=== PATIENT | female | born 1945 | race Two or more races ===

== ENCOUNTER 2017-07-13 11:58 | Inpatient (IN) | payer MEDICARE, MEDICAID ==
[~2017-07-13] VITALS: Ht 157.5 cm; Wt 45.8 kg
[~2017-07-13 11:58] MED LIST: ALEN70TA55; AZAT50TA22; CLON0.5T3; ETAN50IN; IBUP800T24; LEV500T PO; MECL-87; PANT40TA2 PO; PRAV20TA3; PRE1T; RIVA10TA PO; SACC250C PO; [UNRECOGNIZED DRUG - CODE]
[2017-07-13 14:11] LABS: Urine Bacteria FEW /hpf (None Seen); Urine Blood Negative /uL (Negative); Urine Mucus FEW (None Seen); Urine Specific Gravity 1.019 (1.001-1.035); Urine WBC 18 /hpf (0 - 5)
[2017-07-13 14:16] LABS: Basophils # (auto) 0 uL; Eosinophils # (auto) 0.2 uL; Hemoglobin 12.8 g/dL (12.2-16.2); Lymphocytes # (auto) 2.3 uL; Nucleated Red Blood Cells % 0.1 %
[2017-07-13 14:17] LABS: Basophils % (auto) 0.3 % (0.0-2.0); Hematocrit 38.3 % (36.0-46.0); Lymphocytes % (auto) 25.7 % (10.0-50.0); Mean Corpuscular Hemoglobin 33.9 pg (28.0-32.0); Mean Corpuscular Hgb Conc. 33.3 g/dL (32.0-36.0); Mean Corpuscular Volume 101.6 fL (80.0-100.0); Monocytes # (auto) 1.1 uL; Monocytes % (auto) 12.9 % (0.0-12.0); Neutrophils # (auto) 5.2 uL; Neutrophils % (auto) 59.1 % (37.0-80.0); Platelet Count (auto) 273 10^3/uL (140-450); Red Blood Cells 3.77 10^6/uL (4.0-5.20); Red Cell Distribution Width 14.5 % (11.8-14.3); White Blood Cell 8.8 10^3/uL (4.4-10.8)
[2017-07-13 14:35] LABS: INR 1.05 (0.9-1.15); Partial Thromboplastin Time 24.3 sec (22.64-33.71); Prothrombin Time 11.4 sec (9.37-12.3)
[2017-07-13 14:42] LABS: Albumin 3.4 g/dL (3.4-5.0); BUN/Creatinine Ratio 24.2; Bilirubin, Total 0.3 mg/dL (0.2-1.0); Potassium 3.3 mmol/L (3.5-5.1); Total Protein 7.2 g/dL (6.4-8.2)
[2017-07-13] MEDS ORDERED: cefTRIAXone 1GM/10ml IVPUSH 10 ML IV ONE (22:00)
[2017-07-14] MEDS ORDERED: ONDANSETRON HCL 4 MG/2 ML VIAL IV PRN (01:15)
[2017-07-14] MEDS ORDERED: clonazePAM 0.5 MG TAB PO PRN (01:15)
[2017-07-14] MEDS ORDERED: IBUPROFEN 600 MG TAB PO PRN (04:45)
[2017-07-14 05:48] LABS: Basophils # (auto) 0 uL; Hemoglobin 12.4 g/dL (12.2-16.2); Mean Corpuscular Volume 99.1 fL (80.0-100.0); Monocytes # (auto) 0.4 uL; Neutrophils # (auto) 5.8 uL
[2017-07-14 05:55] LABS: Basophils % (auto) 0.3 % (0.0-2.0); Eosinophils # (auto) 0.1 uL; Eosinophils % (auto) 0.7 % (0.0-7.0); Hematocrit 35.3 % (36.0-46.0); Lymphocytes # (auto) 1.1 uL; Lymphocytes % (auto) 15.1 % (10.0-50.0); Mean Corpuscular Hemoglobin 34.8 pg (28.0-32.0); Mean Corpuscular Hgb Conc. 35.2 g/dL (32.0-36.0); Monocytes % (auto) 5.4 % (0.0-12.0); Neutrophils % (auto) 78.5 % (37.0-80.0); Nucleated Red Blood Cells % 0.1 %; Platelet Count (auto) 264 10^3/uL (140-450); Red Blood Cells 3.57 10^6/uL (4.0-5.20); Red Cell Distribution Width 14.1 % (11.8-14.3); White Blood Cell 7.4 10^3/uL (4.4-10.8)
[2017-07-14 06:05] LABS: BUN/Creatinine Ratio 31.4; Calcium 8.4 mg/dL (8.5-10.1); Potassium 3.5 mmol/L (3.5-5.1)
[2017-07-14] MEDS: VERAPAMIL HCL 120 mg ER tab PO SCH (10:19)
[2017-07-14] MEDS: POTASSIUM CHL 20 Meq TABLET PO SCH (10:19)
[2017-07-14] MEDS: PANTOPRAZOLE 40 MG/10 ML VIAL IV SCH (10:19)
[2017-07-14] MEDS ORDERED: GOLYTELY 4L KIT PO ONE (12:30)
[2017-07-14] MEDS ORDERED: CHOL20007 PO (13:41)
[2017-07-14] MEDS ORDERED: ETAN50IN5 SUBCUT (13:41)
[2017-07-14] MEDS ORDERED: IBUP800T24 PO (13:41)
[2017-07-14] MEDS ORDERED: MECL-87 PO (13:41)
[2017-07-14] MEDS ORDERED: PRAV20TA3 PO (13:41)
[2017-07-14] MEDS ORDERED: AZAT50TA18 PO (13:41)
[2017-07-14] MEDS ORDERED: PRE1T PO (13:41)
[2017-07-14] MEDS ORDERED: VITA400T4 PO (13:41)
[2017-07-14] MEDS ORDERED: ALEN70TA55 PO (13:41)
[2017-07-14] MEDS ORDERED: CLON05T PO (13:41)
[2017-07-14] MEDS ORDERED: CALC667C PO (13:41)
[2017-07-14] MEDS ORDERED: MORPHINE SULFATE 10 MG/ML INJ 1ML SDV IV PRN (14:00)
[2017-07-14] MEDS ORDERED: predniSONE 1 MG TAB PO ONE (15:00)
[2017-07-14] MEDS ORDERED: azaTHIOprine 50 MG TAB PO ONE (15:00)
[2017-07-14 18:48] VITALS: BP 154/75
[2017-07-14] MEDS ORDERED: cefTRIAXone 1GM/10ml IVPUSH 10 ML IV SCH (21:00)
[2017-07-14 22:00] VITALS: BP 157/77
[2017-07-15 05:15] LABS: Basophils # (auto) 0 uL; Basophils % (auto) 0.4 % (0.0-2.0); Eosinophils # (auto) 0.2 uL; Eosinophils % (auto) 3.5 % (0.0-7.0); Hematocrit 37.1 % (36.0-46.0); Hemoglobin 12.5 g/dL (12.2-16.2); Lymphocytes # (auto) 1.8 uL; Lymphocytes % (auto) 29.9 % (10.0-50.0); Mean Corpuscular Hemoglobin 33.8 pg (28.0-32.0); Mean Corpuscular Hgb Conc. 33.7 g/dL (32.0-36.0); Mean Corpuscular Volume 100.4 fL (80.0-100.0); Monocytes # (auto) 0.9 uL; Monocytes % (auto) 14.8 % (0.0-12.0); Neutrophils # (auto) 3.1 uL; Neutrophils % (auto) 51.4 % (37.0-80.0); Platelet Count (auto) 258 10^3/uL (140-450); Red Blood Cells 3.69 10^6/uL (4.0-5.20); Red Cell Distribution Width 14.4 % (11.8-14.3); White Blood Cell 6.1 10^3/uL (4.4-10.8)
[2017-07-15 05:33] LABS: BUN/Creatinine Ratio 20.5; Calcium 8.3 mg/dL (8.5-10.1); Potassium 3.5 mmol/L (3.5-5.1)
[2017-07-15 05:36] VITALS: BP 140/80
[2017-07-15 08:27] VITALS: BP 138/78
[2017-07-15] MEDS: MIDAZOLAM HCL 5 MG/ML-1ML VIAL ONE ×2 (09:35→09:40)
[2017-07-15] MEDS: fentaNYL CITRATE 100 MCG/2 ML VL ONE ×2 (09:35→09:40)
[2017-07-15] MEDS ORDERED: diphenhdrAMINE HCL 50 MG/1 ML VL ONE (10:00)
[2017-07-15] MEDS ORDERED: SODIUM CHLORIDE LOCK 10 ML ONE (10:00)
[2017-07-15] MEDS ORDERED: azaTHIOprine 50 MG TAB PO SCH (10:00)
[2017-07-15] MEDS ORDERED: predniSONE 1 MG TAB PO SCH (10:00)
[2017-07-15] MEDS: PANTOPRAZOLE 40 MG/10 ML VIAL IV SCH (11:13)
[2017-07-15] MEDS: VERAPAMIL HCL 120 mg ER tab PO SCH (11:16)
[2017-07-15] MEDS: POTASSIUM CHL 20 Meq TABLET PO SCH (11:19)
[2017-07-15 12:38] VITALS: BP 139/73
[2017-07-15 14:21] VITALS: BP 139/73
== END 2017-07-15 15:55 | disposition home or self-care (01) | DRG 378 ==
LOC: ER 11:58 → OVERFLOW 11:59 → CENTRAL 07-14 18:26
PROVIDERS: ADMIT Nurse Practitioner Family; ATTEND Internal Medicine
PROC: 0DJD8ZZ Inspection of Lower Intestinal Tract, Via Natural or Artificial Opening Endoscopic (ICD-10-PCS; principal; 2017-07-15 09:30)
DX: K62.5 Hemorrhage of anus and rectum (principal); N39.0 Urinary tract infection, site not specified; M06.9 Rheumatoid arthritis, unspecified; E78.5 Hyperlipidemia, unspecified; K57.31 Diverticulosis of large intestine without perforation or abscess with bleeding; E87.6 Hypokalemia; I10 Essential (primary) hypertension; M81.0 Age-related osteoporosis without current pathological fracture; N20.0 Calculus of kidney; Z79.01 Long term (current) use of anticoagulants; Z82.49 Family history of ischemic heart disease and other diseases of the circulatory system; Z90.710 Acquired absence of both cervix and uterus; M19.90 Unspecified osteoarthritis, unspecified site; K64.9 Unspecified hemorrhoids
CPT/HCPCS: 36415; 45378; 74176; 80048; 80053; 81001; 82270; 85025; 85610; 85730; 87086; 93005; 96374; 96375; C9113; J2250

== ENCOUNTER 2018-02-19 16:17 | Observation (INO) | payer MEDICARE, MEDICAID ==
[~2018-02-19] VITALS: Ht 154.9 cm; Wt 51.3 kg
[~2018-02-19 16:17] MED LIST changes: +ALEN70TA55 PO; +AZAT50TA6 PO; +CALC667C PO; +CHOL20007 PO; +CLON0.5T10; -CLON0.5T3; +CLON05T PO; +ETAN50IN5 SUBCUT; +IBUP800T24 PO; +MECL-87 PO; +PRAV20TA3 PO; +PRE1T PO; +VITA400T4 PO
[2018-02-19 16:43] LABS: Basophils # (auto) 0 uL; Eosinophils # (auto) 0 uL; Eosinophils % (auto) 0.4 % (0.0-7.0); Hemoglobin 14.3 g/dL (12.2-16.2); Lymphocytes # (auto) 0.9 uL; Nucleated Red Blood Cells % 0.1 %; Platelet Count (auto) 272 10^3/uL (140-450)
[2018-02-19 16:44] LABS: Basophils % (auto) 0.7 % (0.0-2.0); Hematocrit 41.6 % (36.0-46.0); Lymphocytes % (auto) 14.4 % (10.0-50.0); Mean Corpuscular Hemoglobin 35.5 pg (28.0-32.0); Mean Corpuscular Hgb Conc. 34.4 g/dL (32.0-36.0); Mean Corpuscular Volume 103.2 fL (80.0-100.0); Monocytes # (auto) 0.5 uL; Monocytes % (auto) 8.8 % (0.0-12.0); Neutrophils # (auto) 4.6 uL; Neutrophils % (auto) 75.7 % (37.0-80.0); Red Blood Cells 4.03 10^6/uL (4.0-5.20); Red Cell Distribution Width 14.1 % (11.8-14.3); White Blood Cell 6.1 10^3/uL (4.4-10.8)
[2018-02-19 17:06] LABS: Albumin 3.7 g/dL (3.4-5.0); BUN/Creatinine Ratio 20.6; Bilirubin, Total 0.5 mg/dL (0.2-1.0); Calcium 9.5 mg/dL (8.5-10.1); Potassium 3.7 mmol/L (3.5-5.1); Total Protein 7.5 g/dL (6.4-8.2)
[2018-02-19 21:30] VITALS: BP 160/79
== END 2018-02-19 21:32 | disposition home or self-care (01) | DRG 605 ==
LOC: ER 16:21 → OVERFLOW 16:22 → ER 21:32
PROVIDERS: ADMIT Emergency Medicine; ATTEND Emergency Medicine
DX: S00.03XA Contusion of scalp, initial encounter (principal); I10 Essential (primary) hypertension; M06.9 Rheumatoid arthritis, unspecified; E78.5 Hyperlipidemia, unspecified; W20.8XXA Other cause of strike by thrown, projected or falling object, initial encounter; Y93.89 Activity, other specified; Y92.89 Other specified places as the place of occurrence of the external cause; Y99.8 Other external cause status
CPT/HCPCS: 36415; 70450; 80053; 82962; 85025; 99285; G0378

== ENCOUNTER → 2019-01-31 | Outpatient (CLI) | payer MEDICARE, MEDICAID ==
[~2019-01-31] MED LIST changes: +ALEN1TAB32; +ALEN1TAB32 PO; -ALEN70TA55; -ALEN70TA55 PO; +CLON0.5T11 PO; -CLON05T PO; +VERA120C4; -[UNRECOGNIZED DRUG - CODE]
[2019-01-31 10:00] LABS: Cholesterol 170 mg/dL (< 200)
[2019-01-31 10:03] LABS: HDL Cholesterol 62 mg/dL (40-59); LDL Cholesterol 98 mg/dL (< 100); Triglycerides 142 mg/dL (< 150)
[2019-01-31 10:10] LABS: Free T4 (Free Thyroxine) 1.01 ng/dL (0.89-1.76)
[2019-01-31 10:11] LABS: Folate (Folic Acid) 20.4 ng/mL (5.38-24)
== END | disposition home or self-care (01) ==
LOC: LAB 08:43
PROVIDERS: ATTEND Internal Medicine
DX: E78.5 Hyperlipidemia, unspecified (principal); I10 Essential (primary) hypertension
CPT/HCPCS: 36415; 80061; 82607; 82746; 84439; 84443